=== PATIENT | female | born 1935 | race African-American/Black ===

== ENCOUNTER 2019-10-16 11:35 | Emergency (ER) | payer MEDICARE ==
[~2019-10-16] VITALS: Ht 162.6 cm; Wt 67.1 kg
[2019-10-16 11:37] VITALS: BP 137/73
[2019-10-16 12:11] LABS: ABSOLUTE NEUTROPHILS 2.9 thou/uL (1.4-8.2); EOSINOPHILS 3.8 % (0.0-3.0); HEMATOCRIT 38.7 % (37.0-47.0); HEMOGLOBIN 12.4 gm/dL (12.0-15.0); LYMPHOCYTES 35.8 % (24.0-44.0); MCH 28.6 pg (26.0-34.0); MCHC 32.1 g/dL (28.0-37.0); MCV 89.2 fL (80.0-100.0); MONOCYTES 11.9 % (1.0-8.0); POLYS 47.5 % (36.0-66.0); RBC 4.33 mil/uL (4.20-5.00); RDW 14.1 % (10.5-14.5); WBC 6.2 thou/uL (4.0-11.0)
[2019-10-16 12:25] LABS: ANION GAP 6 mmol/L (7-16); BUN 14 mg/dL (7-18); CALCIUM 8.8 mg/dL (8.5-10.1); CHLORIDE 104 mmol/L (98-107); CO2 30 mmol/L (21-32); CREATININE 1.1 mg/dL (0.6-1.0); GLUCOSE 94 mg/dL (74-106); POTASSIUM 3.4 mmol/L (3.5-5.1); SODIUM 140 mmol/L (136-145)
[2019-10-16 12:27] LABS: ANISOCYTOSIS 1+; PLATELET COUNT 122 thou/uL (150-400)
[2019-10-16 12:36] LABS: ALBUMIN 3.6 g/dL (3.4-5.0); SGOT 18 U/L (15-37); SGPT 23 U/L (30-65); TOTAL BILIRUBIN 0.3 mg/dL (<0.1-1.0); TOTAL PROTEIN 7.5 g/dL (6.4-8.2); TROPONIN-I <0.06 ng/mL (<0.06)
[2019-10-16] MEDS ORDERED: FLONASE 0.05%50 MCG NARES (12:59)
--- NOTE | 2019-10-17 07:55 | EKG ---
[facility] [place] [address] ELECTROCARDIOGRAM REPORT Name: JAG OWENS Room #: DEP [facility]#: [id number] Admission: 10/16/19 Attend Phys: Discharge: 10/16/19 Date of : 35 Report #: [id number] THIS REPORT FOR: cc: FAM - Family physician unknown FAM - Family physician unknown Jim Sanchez MD [facility] ~ THIS REPORT FOR: //name// [facility] ED Test Date: 2019-10-16 Test Time: 11:50:59 Pat Name: JAG OWENS Department: Room: Gender: F [employer]: : [id number] Requested By: Ezra Plascencia Order Number: [id number] MD: Jim Sanchez Measurements Intervals [place] Rate: 50 P: 1 IN: 168 QRS: -9 QRSD: 85 T: 73 QT: 449 QTc: 410 Interpretive Statements Sinus bradycardia Abnormal R-wave progression, early transition Left ventricular hypertrophy Baseline wander in lead(s) II,III,aVF No previous ECG available for comparison Electronically Signed On 10-17-2019 7:54:23 DIRECTOR PHARMACEUTICAL by Jim Sanchez [email or web address] <ELECTRONICALLY SIGNED> By: Jim Sanchez MD, [facility] 10/17/19 0754 1150 1150 Jim Sanchez MD, [facility] /EPI
== END 2019-10-16 13:10 | disposition home or self-care (01) ==
LOC: ER 11:35
PROVIDERS: Emergency Medicine
DX: R05 Cough (principal); R09.81 Nasal congestion; Z87.891 Personal history of nicotine dependence

== ENCOUNTER 2019-10-29 11:37 | Emergency (ER) | payer MEDICARE ==
[~2019-10-29] VITALS: Ht 165.1 cm; Wt 74.4 kg
[~2019-10-29 11:37] MED LIST: FLONASE 0.05%50 MCG NARES
[2019-10-29 13:37] VITALS: BP 133/85
== END 2019-10-29 13:39 | disposition home or self-care (01) ==
LOC: ER 11:37
DX: S40.012A Contusion of left shoulder, initial encounter (principal); S70.02XA Contusion of left hip, initial encounter; Z87.891 Personal history of nicotine dependence; W18.39XA Other fall on same level, initial encounter; Y93.E1 Activity, personal bathing and showering; Y92.89 Other specified places as the place of occurrence of the external cause; Y99.8 Other external cause status